=== PATIENT | male | born 1955 ===

== ENCOUNTER 2024-07-20 10:15 | Inpatient (IN) | payer OTHER ==
[~2024-07-20] VITALS: Ht 175.3 cm; Wt 74.4 kg
[2024-07-20] MEDS ORDERED: LOSARTAN POTAS100 MG PO (11:02)
[2024-07-20] MEDS ORDERED: NORVASC5 MG PO (11:03)
[2024-07-20] MEDS ORDERED: PROTONIX40 MG PO (11:03)
[2024-07-25] MEDS ORDERED: VANCOMYCIN HCL 1,000 MG VIAL ONE ×3 (14:25→19:26)
[2024-07-25] MEDS ORDERED: CEFAZOLIN SODIUM 1,000 MG VIAL ONE ×2 (14:25→14:40)
[2024-07-25] MEDS ORDERED: PERCOCET 5-3251 EACH PO (16:24)
[2024-07-25] MEDS ORDERED: AMOX-CLAV 875-1 EACH PO (16:25)
[2024-07-25] MEDS ORDERED: MEDROLPACK PO (16:25)
[2024-07-25] MEDS ORDERED: ZOFRAN8 MG PO (16:26)
[2024-07-25] MEDS ORDERED: COLACE100 MG PO (16:26)
[2024-07-25] MEDS ORDERED: GABAPENTIN100 M2 PO (16:30)
[2024-07-25] MEDS ORDERED: NEURONTIN800 MG PO (16:31)
[2024-07-25] MEDS ORDERED: ENALAPRILAT DIHYDRATE 1.25 MG/ML VIAL IV PRN (18:30)
[2024-07-25] MEDS ORDERED: PROMETHAZINE HCL 50 MG/ML AMPUL IM PRN (18:30)
[2024-07-25] MEDS ORDERED: 0.9 % SODIUM CHLORIDE 1,000 ML IV SCH (18:30)
[2024-07-25] MEDS ORDERED: METHYLPREDNISOLONE ACETATE 80 MG/ML VIAL ONE (19:21)
[2024-07-25] MEDS ORDERED: METHYLPREDNISOLONE SOD SUCC 125 MG VIAL ONE (19:21)
[2024-07-25] MEDS ORDERED: ACETAMINOPHEN 500 MG GEL..CAP PO SCH (20:00)
[2024-07-25] MEDS ORDERED: IOVERSOL 320 MG/ML - 50 ML VIAL IV ONE (20:38)
[2024-07-25] MEDS ORDERED: TAMSULOSIN HCL 0.4 MG CAP PO STA (20:45)
[2024-07-25] MEDS ORDERED: GABAPENTIN 800 MG TABLET PO SCH (21:00)
[2024-07-25] MEDS ORDERED: MORPHINE SULFATE 4 MG/ML CARTRIDGE IV SCH (21:00)
[2024-07-25] MEDS ORDERED: VANCOMYCIN HCL 1,000 MG VIAL IV SCH (21:00)
[2024-07-26] MEDS ORDERED: SODIUM CHLORIDE 0.45 % 1,000 ML IV SCH
[2024-07-26] MEDS ORDERED: MORPHINE SULFATE 4 MG/ML VIAL IV ONE ×2 (00:50→01:40)
[2024-07-26] MEDS ORDERED: METHYLPREDNISOLONE SOD SUCC 125 MG VIAL IV SCH (01:00)
[2024-07-26] MEDS ORDERED: CEFAZOLIN SODIUM 1,000 MG in 0.9 % SODIUM CHLORIDE 50 ML IV SCH (01:00)
[2024-07-26] MEDS ORDERED: METHYLPREDNISOLONE SOD SUCC 125 MG VIAL ONE (01:03)
[2024-07-26] MEDS ORDERED: ENALAPRILAT DIHYDRATE 1.25 MG/ML VIAL IV ONE (01:03)
[2024-07-26] MEDS ORDERED: CEFAZOLIN SODIUM 1,000 MG VIAL ONE (01:03)
[2024-07-26 02:51] VITALS: BP 148/82; O2SAT 98
[2024-07-26] MEDS ORDERED: OxyCODONE HCL 5 MG TABLET (ROXICODONE) PO PRN (06:01)
[2024-07-26 07:41] LABS: HEMOGLOBIN 16.3 g/dL (13-16.00); MEAN CELL VOLUME 88.5 fL (80.0-100.00); MEAN CORPUSCULAR HEMOGLOBIN 30.7 pg (27.00-32.0); MEAN CORPUSCULAR HGB CONC 34.7 g/dl (32.0-36.0); PLATELET COUNT 241 K/uL (150-450); RED BLOOD COUNT 5.31 M/uL (4.00-6.00); RED CELL DISTRIBUTION WIDTH 14.2 % (11.5-14.5)
[2024-07-26 08:00] VITALS: BP 153/86
[2024-07-26 08:21] LABS: CALCIUM 9.1 mg/dL (8.5-10.1); CREATININE SERUM 1.57 mg/dL (0.70-1.30); GFR 44.15; POTASSIUM 3.69 mEq/L (3.5-5.1)
[2024-07-26] MEDS ORDERED: VANCOMYCIN HCL 1,000 MG VIAL ONE ×2 (08:29→13:03)
[2024-07-26] MEDS ORDERED: FAMOtidine 20 MG TABLET PO SCH (09:00)
[2024-07-26] MEDS ORDERED: TAMSULOSIN HCL 0.4 MG CAP PO SCH (09:00)
[2024-07-26] MEDS ORDERED: LOSARTAN POTASSIUM 100 MG TABLET PO SCH (09:00)
[2024-07-26] MEDS ORDERED: AMLODIPINE BESYLATE 5 MG TABLET PO SCH (09:00)
[2024-07-26] MEDS ORDERED: DOCUSATE SODIUM 100MG CAP PO SCH (09:00)
[2024-07-26 16:00] VITALS: BP 146/87; O2SAT 95
[2024-07-26 20:08] VITALS: O2SAT 93
[2024-07-26] MEDS ORDERED: VANCOMYCIN HCL 1,000 MG VIAL IV SCH (22:45)
[2024-07-26] MEDS ORDERED: CEFAZOLIN SODIUM 1,000 MG VIAL IV SCH (22:45)
[2024-07-27] VITALS: O2SAT 90
[2024-07-27 00:48] VITALS: BP 139/52
[2024-07-27 00:49] VITALS: BP 122/60
[2024-07-27 06:09] VITALS: O2SAT 90
[2024-07-27 08:00] VITALS: BP 197/91; O2SAT 95
[2024-07-27 09:06] VITALS: O2SAT 94
== END 2024-07-27 10:45 | disposition home or self-care (01) | DRG 402 ==
LOC: O/R 07-25 06:38 → SURG 07-25 06:38 → SURH 07-25 10:15 → SURG 07-25 23:07
PROVIDERS: ADMIT Orthopaedic Surgery Orthopaedic Surgery of the Spine; ATTEND Orthopaedic Surgery Orthopaedic Surgery of the Spine
PROC: 0SG3071 Fusion of Lumbosacral Joint with Autologous Tissue Substitute, Posterior Approach, Posterior Column, Open Approach (ICD-10-PCS; 2024-07-25)
PROC: 0SB40ZZ Excision of Lumbosacral Disc, Open Approach (ICD-10-PCS; 2024-07-25)
PROC: 0QB30ZZ Excision of Left Pelvic Bone, Open Approach (ICD-10-PCS; 2024-07-25)
PROC: 07DR0ZZ Extraction of Iliac Bone Marrow, Open Approach (ICD-10-PCS; 2024-07-25)
PROC: 4A1104G Monitoring of Peripheral Nervous Electrical Activity, Intraoperative, Open Approach (ICD-10-PCS; 2024-07-25)
PROC: XRGD0R7 Fusion of Lumbosacral Joint using Custom-Made Anatomically Designed Interbody Fusion Device, Open Approach, New Technology Group 7 (ICD-10-PCS; principal; 2024-07-25 17:30)
PROC: 4A12X4Z Monitoring of Cardiac Electrical Activity, External Approach (ICD-10-PCS; 2024-07-26)
DX: M43.17 Spondylolisthesis, lumbosacral region (principal); M48.07 Spinal stenosis, lumbosacral region; M54.17 Radiculopathy, lumbosacral region; I10 Essential (primary) hypertension; F17.200 Nicotine dependence, unspecified, uncomplicated

== ENCOUNTER 2025-05-11 12:41 | Inpatient (IN) | payer OTHER ==
[~2025-05-11] VITALS: Ht 175.3 cm; Wt 76.7 kg
[~2025-05-11 12:41] MED LIST: AMOX-CLAV 875-1 EACH PO; COLACE100 MG PO; GABAPENTIN100 M2 PO; LOSARTAN POTAS100 MG PO; MEDROLPACK PO; NEURONTIN800 MG PO; NORVASC5 MG PO; PERCOCET 5-3251 EACH PO; PROTONIX40 MG PO; ZOFRAN8 MG PO
[2025-05-11 13:21] LABS: COVID-19 AG NEGATIVE (NEGATIVE)
[2025-05-22] MEDS ORDERED: PERCOCET 5-3251 EACH PO (12:53)
[2025-05-22] MEDS ORDERED: AMOX-CLAV 875-1 EACH PO (12:53)
[2025-05-22] MEDS ORDERED: MEDROLPACK PO (12:53)
[2025-05-22] MEDS ORDERED: NEURONTIN800 MG PO (12:54)
[2025-05-22] MEDS ORDERED: COLACE100 MG PO (12:54)
[2025-05-22] MEDS ORDERED: GABAPENTIN100 M2 PO (12:54)
[2025-05-22] MEDS ORDERED: ZOFRAN8 MG PO (12:54)
[2025-05-22] MEDS ORDERED: VANCOMYCIN HCL 1,000 MG VIAL IV ONE (16:00)
[2025-05-22] MEDS ORDERED: METHYLPREDNISOLONE SOD SUCC 125 MG VIAL IV ONE ×2 (16:00→16:15)
[2025-05-22] MEDS ORDERED: CEFAZOLIN SODIUM 1,000 MG VIAL IV ONE (16:00)
[2025-05-22] MEDS ORDERED: VANCOMYCIN HCL 1,000 MG VIAL IR ONE (16:00)
[2025-05-22] MEDS ORDERED: 0.9 % SODIUM CHLORIDE 1,000 ML IV SCH (16:15)
[2025-05-22] MEDS ORDERED: ISOPROPYL ALCOHOL 30 ML OUNCE TOP ONE (16:15)
[2025-05-22] MEDS ORDERED: ENALAPRILAT DIHYDRATE 1.25 MG/ML VIAL IV PRN (16:15)
[2025-05-22] MEDS ORDERED: PROMETHAZINE HCL 50 MG/ML AMPUL IM PRN (16:15)
[2025-05-22] MEDS ORDERED: MORPHINE SULFATE 4 MG/ML CARTRIDGE IV SCH (17:00)
[2025-05-22] MEDS ORDERED: DOCUSATE SODIUM 100MG CAP PO SCH (17:00)
[2025-05-22] MEDS ORDERED: METHYLPREDNISOLONE SOD SUCC 125 MG VIAL IV SCH (17:00)
[2025-05-22] MEDS ORDERED: CEFAZOLIN SODIUM 1,000 MG in 0.9 % SODIUM CHLORIDE 50 ML IV SCH (17:00)
[2025-05-22] MEDS ORDERED: METHYLPREDNISOLONE ACETATE 80 MG/ML VIAL IU ONE (18:30)
[2025-05-22] MEDS ORDERED: ACETAMINOPHEN 500 MG GEL..CAP PO SCH (20:00)
[2025-05-22] MEDS ORDERED: GABAPENTIN 800 MG TABLET PO SCH (21:00)
[2025-05-22] MEDS ORDERED: VANCOMYCIN HCL 1,000 MG VIAL IV SCH (21:00)
[2025-05-22 21:30] VITALS: BP 135/80; O2SAT 94
[2025-05-23] MEDS ORDERED: SODIUM CHLORIDE 0.45 % 1,000 ML IV SCH
[2025-05-23 02:05] VITALS: O2SAT 90
[2025-05-23 05:53] VITALS: O2SAT 94
[2025-05-23] MEDS ORDERED: OxyCODONE HCL 5 MG TABLET (ROXICODONE) PO PRN (06:01)
[2025-05-23 06:12] LABS: BASO % 0.1 % (0.1-1.2); EOS # 0.00 (0.04-0.54); EOS % 0.0 % (0.7-7.0); LYMPH # 0.62 (1.18-3.74); LYMPH % 6.7 % (19.3-53.1); MEAN PLATELET VOLUME 9.80 fl (9.4-12.4); MONO # 0.28 (0.24-0.82); MONO % 3.0 % (4.7-12.5); NEUT # 8.34 (1.56-6.13); NEUT % 90.1 % (34.0-71.1); RED CELL DISTRIBUTION WIDTH 13.2 % (11.6-14.4)
[2025-05-23 06:31] LABS: BUN CREA RATIO 19.0 (7.0-25.0); CREATININE SERUM 1.02 mg/dL (0.70-1.30); GFR 72.41; GLUCOSE FASTING 186.0 mg/dL (65-100); OSMOLALITY SERUM 288.0 MOSM/KG (275-295)
[2025-05-23] MEDS ORDERED: LOSARTAN POTASSIUM 100 MG TABLET PO SCH (09:00)
[2025-05-23] MEDS ORDERED: TAMSULOSIN HCL 0.4 MG CAP PO SCH (09:00)
[2025-05-23 09:35] VITALS: O2SAT 90
== END 2025-05-23 14:00 | disposition home or self-care (01) | DRG 428 ==
LOC: O/R 05-22 13:00 → SURG 05-22 18:24 → SURH 05-23 12:30 → SURG 05-23 14:00
PROVIDERS: ADMIT Orthopaedic Surgery Orthopaedic Surgery of the Spine; ATTEND Orthopaedic Surgery Orthopaedic Surgery of the Spine
PROC: 0SG10K1 Fusion of 2 or more Lumbar Vertebral Joints with Nonautologous Tissue Substitute, Posterior Approach, Posterior Column, Open Approach (ICD-10-PCS; 2025-05-22)
PROC: 0ST20ZZ Resection of Lumbar Vertebral Disc, Open Approach (ICD-10-PCS; 2025-05-22)
PROC: 0QB30ZX Excision of Left Pelvic Bone, Open Approach, Diagnostic (ICD-10-PCS; 2025-05-22)
PROC: 07DR0ZZ Extraction of Iliac Bone Marrow, Open Approach (ICD-10-PCS; 2025-05-22)
PROC: 4A1104G Monitoring of Peripheral Nervous Electrical Activity, Intraoperative, Open Approach (ICD-10-PCS; 2025-05-22)
PROC: 4A12X4Z Monitoring of Cardiac Electrical Activity, External Approach (ICD-10-PCS; 2025-05-22)
PROC: 0SG10A0 Fusion of 2 or more Lumbar Vertebral Joints with Interbody Fusion Device, Anterior Approach, Anterior Column, Open Approach (ICD-10-PCS; principal; 2025-05-22 13:00)
DX: M51.362 Other intervertebral disc degeneration, lumbar region with discogenic back pain and lower extremity pain (principal); M48.07 Spinal stenosis, lumbosacral region; M48.062 Spinal stenosis, lumbar region with neurogenic claudication; M47.816 Spondylosis without myelopathy or radiculopathy, lumbar region; Z98.1 Arthrodesis status